=== PATIENT | male | born 1970 | race Hispanic/Latino ===

== ENCOUNTER 2018-04-16 10:26 | Day surgery (SDC) | payer OTHER ==
--- NOTE | 2018-04-16 10:48 | C.PDOC ---
History Of Present Illness 47 Y/O MALE PRESENTS TO ED REFERRED BY FOR FURTHER EVALUATION OF METAL FRAGMENT ON CHEST WALL FOR 30+YEARS SUSTAINED AFTER CHOPPING WOOD 30+ YEARS AGO. PATIENT STATES HE NEEDS AND MRI AND WANTS FOREIGN BODY REMOVED, DENIES FEVER, CHILLS, CHEST PAIN, SOB OR ANY OTHER COMPLAINTS AT THIS TIME. Time Seen by Provider: 04/16/18 10:47 Chief Complaint (Nursing): Foreign Body History Per: Patient History/Exam Limitations: no limitations Onset/Duration Of Symptoms: Days Current Symptoms Are (Timing): Still Present Past Medical History Reviewed: Historical Data, Nursing Documentation, Vital Signs Vital Signs: Last Vital Signs Temp 98.6 F 04/16/18 10:40 Pulse 60 04/16/18 10:40 Resp 18 04/16/18 10:40 BP 114/80 04/16/18 10:40 Pulse Ox 98 04/16/18 11:16 - Medical History PMH: Depression Surgical History: No Surg Hx Family History: States: No Known Family Hx - Social History Hx Alcohol Use: No Hx Substance Use: No - Immunization History Hx Tetanus Toxoid Vaccination: No Hx Influenza Vaccination: No Hx Pneumococcal Vaccination: No Review Of Systems Constitutional: Negative for: Fever, Chills Cardiovascular: Negative for: Chest Pain Respiratory: Negative for: Shortness of Breath Gastrointestinal: Negative for: Nausea, Vomiting Skin: Positive for: Other (foreign body in chest wall). Negative for: Rash Physical Exam - Physical Exam Appears: Non-toxic, No Acute Distress Skin: Warm, Dry, No Rash Head: Atraumatic, Normacephalic Eye(s): bilateral: Normal Inspection Oral Mucosa: Moist Neck: Normal ROM, Supple Chest: No Tenderness, Other (palpable subcutaneous firm object to right peristernal area) Cardiovascular: Rhythm Regular Respiratory: Normal Breath Sounds, No Rales, No Rhonchi, No Wheezing Gastrointestinal/Abdominal: Soft, No Tenderness, No Guarding, No Rebound Neurological/Psych: Oriented x3, Normal Speech, Normal Cognition ED Course And Treatment - Laboratory Results Result Diagrams: 04/16/18 11:27 04/16/18 11:27 ECG: Interpreted By Me, Viewed By Me ECG Rhythm: Sinus Bradycardia Rate From EC (BPM) O2 Sat by Pulse Oximetry: 98 (RA) Pulse Ox Interpretation: Normal Progress - Re-Evaluation Re-evaluation Note: 04/16/18 10:30 D/w Dr. Balderas instructed pre op labs and admit patient under her service. Disposition Counseled Patient/Family Regarding: Diagnosis - Disposition Disposition: HOSPITALIZED Disposition Time: 10:56 Condition: STABLE - POA Present On Arrival: None - Clinical Impression Clinical Impression: Foreign body of chest wall - Scribe Statement The provider has reviewed the documentation as recorded by the Scribe Praneeth Hernandez All medical record entries made by the Scribe were at my direction and personally dictated by me. I have reviewed the chart and agree that the record accurately reflects my personal performance of the history, physical exam, medical decision making, and the department course for this patient. I have also personally directed, reviewed, and agree with the discharge instructions and disposition. Decision To Admit - Pt Status Changed To: Hospital Disposition Of: SDS- Endo,OR,Cath,IR - . Bed Request Type: Same Day Surgery Admitting Physician: Radha Balderas Patient Diagnosis: Foreign body of chest wall
[2018-04-16] MEDS ORDERED: Sodium Chloride 0.9% 1,000 ML IV ONE (10:57)
[2018-04-16 11:36] LABS: BASO % 0.5 % (0.0-2.0); EOS # 0.1 K/uL (0.0-0.7); EOS % 1.1 % (0.0-4.0); HEMOGLOBIN 14.7 g/dL (12.0-18.0); LYMPH % 28.1 % (20.0-40.0); MEAN CELL VOLUME 88.1 fL (80.0-94.0); MEAN CORPUSCULAR HEMOGLOBIN 31.2 pg (27.0-31.0); MEAN CORPUSCULAR HGB CONC 35.4 g/dL (33.0-37.0); MEAN PLATELET VOLUME 8.3 fL (7.2-11.7); MONO # 0.6 K/uL (0.0-0.8); NEUT # 4.3 K/uL (1.8-7.0); NEUT % 61.3 % (50.0-75.0); NRBC % 0.2 % (0.0-2.0); RBC 4.72 Mil/uL (4.40-5.90); RED CELL DISTRIBUTION WIDTH 12.4 % (11.5-14.5)
[2018-04-16 11:46] LABS: PROTHROMBIN TIME 11.2 SECONDS (9.7-12.2)
[2018-04-16 11:50] LABS: SQUAMOUS EPITHIAL < 1 /hpf (0-5); URINE BILIRUBIN NEGATIVE (NEGATIVE); URINE BLOOD NEGATIVE (NEGATIVE); URINE CLARITY Hazy (Clear); URINE COLOR Yellow (YELLOW); URINE GLUCOSE (UA) NORMAL (Normal); URINE LEUKOCYTE ESTERASE NEG Leu/uL (Negative); URINE PROTEIN NEGATIVE (NEGATIVE)
[2018-04-16 11:55] LABS: ALB/GLOB RATIO 1.8 (1.0-2.1); ALBUMIN 4.6 g/dL (3.5-5.0); ALT/SGPT 42 U/L (21-72); AST/SGOT 40 U/L (17-59); BLOOD UREA NITROGEN 17 mg/dL (9-20); CALCIUM 9.1 mg/dl (8.6-10.4); GFR AFRICAN-AMERICAN > 60; GFR NON-AFRICAN AMERICAN > 60
[2018-04-16 12:00] VITALS: PULSE 80
--- NOTE | 2018-04-16 12:22 | RAD ---
HISTORY: Pre Op COMPARISON: No prior. TECHNIQUE: Chest PA and lateral FINDINGS: LUNGS: Nothing no no pulmonary infiltrate. Metallic radiopaque foreign body in the subcutaneous soft tissues of the right anterior chest wall. PLEURA: No significant pleural effusion identified. No pneumothorax apparent. CARDIOVASCULAR: Normal. OSSEOUS STRUCTURES: No significant abnormalities. VISUALIZED UPPER ABDOMEN: Normal. OTHER FINDINGS: None. IMPRESSION: No active disease.
--- NOTE | 2018-04-16 12:28 | CP.SDSHP ---
Same Day Surgery H & P - History Proposed Procedure: Exscision of chest wall foreign body Pre-Op Diagnosis: Chest wall foriegn body - Previous Medical/Surgical History Comments: PMH is limited to erectile dysfunction and hyperproloactinemia Previous Surgical History: Denies - Allergies Allergies: Allergies No Known Allergies Allergy (Unverified 04/16/18 10:45) - Current Medications Current Medications: Lexapro - Physical Exam General Appearance: Well nurshed, well kempt adult male Vital Signs: Vital Signs 04/16/18 04/16/18 04/16/18 10:40 11:57 11:57 Temperature 98.6 F 98 F Pulse Rate 60 80 Respiratory 18 16 Rate Blood Pressure 114/80 99/66 L O2 Sat by Pulse 98 98 98 Oximetry Mental Status: Alert & Oriented x3 Neuro: WNL Heart: WNL Lungs: WNL GI: WNL - {Optional Preform as Required} Integument: WNL ENT: Other (Thyromegaly) - Impression Impression: Healthy 47M with foriegn body on anterior chest wall - Date & Time Date: 04/16/18 Time: 12:28 Short Stay Discharge - Short Stay Discharge Admitting Diagnosis/Reason for Visit: SENT BY PMD Disposition: HOME/ ROUTINE Additional Instructions (Diet, Activity): You have dissolvable sutures,covered by surgical tape which will fall off on its own. Do not shower for two days. IF you have any problems or concerns call Dr. Rogers office.
[2018-04-16] MEDS ORDERED: ceFAZolin 1 gm in NS 0 GM/0 ML BAG IVPB ONE (14:45)
[2018-04-16] MEDS: Lidocaine/Epinephrine 1% 1:100000 10 ML IJ ONE ×2 (15:30→15:35)
[2018-04-16 16:12] VITALS: BP 100/74; RESP 18; TEMP 98; O2SAT 100
--- NOTE | 2018-04-19 09:52 | PCM.SURG1 ---
Surgeon's Initial Post Op Note - Surgeon's Notes Surgeon: Shannon Balderas Pipe Recovery Specialist: Margo Fleming Type of Anesthesia: Local Pre-Operative Diagnosis: Foreign body chest wall Operative Findings: irregular, sharp foreign body consistent with history of piece of an axe. Post-Operative Diagnosis: Foreign body chest wall Operation Performed: excision foreign body chest wall Specimen/Specimens Removed: foreign body Estimated Blood Loss: EBL {In ML}: 1 Blood Products Given: N/A Drains Used: No Drains Post-Op Condition: Good Date of Surgery/Procedure: 04/16/18 Time of Surgery/Procedure: 15:00
--- NOTE | 2018-04-19 18:26 | CARD ---
APPROVED REPORT EKG Measurement Heart [id number] <Conclusion> Sinus bradycardia Otherwise normal ECG
--- NOTE | 2018-04-19 21:12 | OP ---
PROCEDURE DATE: 04/16/2018 PREOPERATIVE DIAGNOSIS: Foreign body chest wall. POSTOPERATIVE DIAGNOSIS: Foreign body chest wall. PROCEDURE: Excision of foreign body chest wall. SURGEON: Radha Balderas MD. PRACTICAL MINISTRIES PROFESSOR: Dr. Fleming. TYPE OF ANESTHESIA: Local 1% Lidocaine. DESCRIPTION OF PROCEDURE: With the patient in the supine position under adequate general anesthesia, the right upper anterior chest was prepped and draped in the usual sternal manner. The patient had a palpable subcutaneous hard foreign body, just above the right breast, and this was consistent with the patient's history of having felt a foreign body enter the area after chopping wood with an axe that was noted to be broken. In addition, the emergency room x-ray indicated the presence of a single radiopaque foreign body. The skin overlying this mass was infiltrated with 1% Lidocaine and a small incision was made directly over the hard mass. The dark colored material with the appearance of metal was identified and grasped and sharply dissected free of the surrounding subcutaneous tissue and then excised. The wound was examined for hemostasis and small bleeders were cauterized. Closure was performed with subcuticular suture of 4-0 Monocryl and Steri-Strips. Dry sterile dressing was applied. The patient tolerated the procedure well and transferred to the recovery room in stable condition. Estimated blood loss for the procedure was 1 mL. Radha Balderas MD
== END 2018-04-16 16:14 | disposition home or self-care (01) ==
LOC: C.ER 10:26 → C.SDS 11:15
PROVIDERS: ATTEND Specialist
DX: S20.351A Superficial foreign body of right front wall of thorax, initial encounter (principal); W45.8XXA Other foreign body or object entering through skin, initial encounter
CPT/HCPCS: 10120; 36415; 71046; 80053; 81001; 85025; 85610; 85730; 86850; 86900; 88300; 93005; 99285; J7030